=== PATIENT | male | born 1975 | race African-American/Black ===

== ENCOUNTER 2018-05-13 23:08 | Emergency (ER) | payer OTHER ==
[~2018-05-13] VITALS: Ht 180.3 cm; Wt 91.0 kg
[2018-05-14 00:25] LABS: HEMATOCRIT 42.5 % (38.0-50.0); HEMOGLOBIN 14.3 G/DL (12.5-16.6); MCH 28.2 PG (29.0-34.0); MCHC 33.6 G/DL (30.0-36.0); MCV 83.8 FL (86-99); PLATELET COUNT 234 K/uL (156-360); RBC DIS.WIDTH-CV 13.2 % (11.8-14.6); RBC DIS.WIDTH-SD 40.3 % (39-53); RED BLOOD COUNT 5.07 M/uL (4.00-5.50); WHITE BLOOD COUNT 6.9 K/uL (4.1-10.2)
[2018-05-14 00:42] LABS: ALBUMIN 4.6 g/dL (3.2-4.8); CHLORIDE 103 mEq/L (99-109); POTASSIUM 4.2 mEq/L (3.7-5.4); SODIUM 139 mEq/L (136-147)
[2018-05-14 00:44] LABS: GLUCOSE 92 mg/dL (70-99); TOTAL PROTEIN 8.2 g/dL (6.4-8.3)
[2018-05-14 00:46] LABS: TOTAL BILIRUBIN 0.4 mg/dL (0.0-1.0)
[2018-05-14 00:47] LABS: ALKALINE PHOSPHATASE 68 IU/L (3-129)
[2018-05-14 00:48] LABS: CREATININE 1.1 mg/dL (0.6-1.3)
[2018-05-14 00:49] LABS: AST (GOT) 15 IU/L (2-34); UREA NITROGEN (BUN) 11 mg/dL (9-23)
[2018-05-14 00:51] LABS: ALT (GPT) 14 IU/L (3-49)
[2018-05-14 01:02] LABS: GFR ESTIMATE (CALCULATED) > 59 mL/min/ (58.99-99999)
[2018-05-14 01:27] LABS: APPEARANCE CLEAR ((CLEAR)); BILIRUBIN NEGATIVE; BLOOD NEGATIVE; COLOR YELLOW ((YELLOW)); GLUCOSE (STRIP) NEGATIVE; KETONES 5; LEUKOCYTES NEGATIVE; NITRITE NEGATIVE; PROTEIN (STRIP) 30; SPECIFIC GRAVITY 1.028 (1.000-1.030); UCUL ADDED? NO; UROBILINOGEN 0.2 MG/DL (0.2-1.0)
[2018-05-14 06:09] VITALS: BP 168/82
== END 2018-05-14 06:10 | disposition home or self-care (01) ==
LOC: EME 23:08
DX: K52.9 Noninfective gastroenteritis and colitis, unspecified (principal)
CPT/HCPCS: 74177; 80053; 81003; 85027; 99281; 99284